=== PATIENT | female | born 1975 | race Caucasian/White ===

== ENCOUNTER → 2016-09-19 | Outpatient (REF) | payer BC | LOC: M LABDRAW1 11:34 | PROVIDERS: ATTEND Nurse Practitioner Family | DX: Z79.899 Other long term (current) drug therapy (principal) ==

== ENCOUNTER → 2018-02-15 | Outpatient (CLI) | payer BC | LOC: M SLEEP 19:39 | DX: R06.83 Snoring (principal); R40.0 Somnolence | CPT/HCPCS: 95810 ==

== ENCOUNTER → 2021-01-08 | Outpatient (REF) | payer BC | LOC: M LAB REF 16:28 | PROVIDERS: ATTEND Otolaryngology | DX: K21.9 Gastro-esophageal reflux disease without esophagitis (principal) ==

== ENCOUNTER → 2021-02-08 | Outpatient (REF) | payer BC | LOC: M LAB REF 11:29 | PROVIDERS: ATTEND Otolaryngology | DX: K14.0 Glossitis (principal) ==

== ENCOUNTER → 2021-04-18 | Outpatient (REF) | LOC: M EMP 12:15 | PROVIDERS: ATTEND Family Medicine | DX: Z20.822 Contact with and (suspected) exposure to COVID-19 (principal) ==

== ENCOUNTER → 2021-05-22 | Outpatient (CLI) | payer BC | LOC: M WUC 14:50 | PROVIDERS: ATTEND Internal Medicine | DX: R11.0 Nausea (principal) ==

== ENCOUNTER → 2021-08-14 | Outpatient (REF) | payer BC ==
[2021-08-14 16:51] LABS: APPEARANCE, URINE CLEAR (CLEAR); BACTERIA, URINE AUTO NEGATIVE (NEGATIVE); BILIRUBIN, URINE AUTO NEGATIVE (NEGATIVE); BLOOD, URINE BLOOD NEGATIVE (NEGATIVE); COLOR, URINE YELLOW (YELLOW); GLUCOSE, URINE (UA) AUTO NEGATIVE (NEGATIVE); KETONE, URINE AUTO NEGATIVE (NEGATIVE); LEUKOCYTE ESTERASE, URINE AUTO 3+ (NEGATIVE); NITRITE, URINE AUTO NEGATIVE (NEGATIVE); PROTEIN, URINE AUTO NEGATIVE (NEGATIVE); RBC, URINE AUTO 0 /HPF (0-3); SPECIFIC GRAVITY URINE AUTO 1.008 (1.002-1.035); SQUAMOUS EPITHELIAL CELL UR AU 2 /HPF (0-6); UROBILINOGEN, URINE AUTO 0.2 mg/dL (0.0-2.0); WBC, URINE AUTO 1 /HPF (0-3)
== END ==
LOC: M LAB REF 16:18
PROVIDERS: ATTEND Physician Assistant Medical
DX: R30.0 Dysuria (principal)

== ENCOUNTER → 2022-05-08 | Outpatient (REF) ==
[2022-05-08 13:38] LABS: RSV AMPLIFICATION NEGATIVE (NEGATIVE)
== END ==
LOC: M LABSMTC 10:35
PROVIDERS: ATTEND Family Medicine
DX: Z00.00 Encounter for general adult medical examination without abnormal findings (principal)

== ENCOUNTER → 2022-09-17 | Outpatient (REF) | payer BC ==
[2022-09-17 08:51] LABS: HEMATOCRIT 40.8 % (36.0-47.0); HEMOGLOBIN 13.6 g/dl (12.0-15.5); MEAN CORPUSCULAR HEMOGLOBIN 29.9 pg (27.0-33.0); MEAN CORPUSCULAR HGB CONC 33.3 g/dl (32.0-36.5); MEAN CORPUSCULAR VOLUME 89.7 fl (80.0-96.0); PLATELET COUNT, AUTOMATED 395 10^3/uL (150-450); RED BLOOD COUNT 4.55 10^6/uL (4.00-5.40); WHITE BLOOD COUNT 7.9 10^3/uL (4.0-10.0)
[2022-09-17 09:17] LABS: ALBUMIN 3.5 G/DL (3.2-5.2); ALKALINE PHOSPHATASE 51 U/L (46-116); ALT/SGPT 13 U/L (7.0-40); AST/SGOT 13 U/L (<34); BILIRUBIN,TOTAL 0.6 MG/DL (0.3-1.2); BLOOD UREA NITROGEN 11 MG/DL (9-23); CALCIUM LEVEL 8.8 MG/DL (8.5-10.1); CARBON DIOXIDE LEVEL 27 MMOL/L (20-31); CHLORIDE LEVEL 104 MMOL/L (98-107); CREATININE FOR GFR 0.74 MG/DL (0.55-1.30); GLOMERULAR FILTRATION RATE > 60.0 (>58); GLUCOSE, FASTING 94 MG/DL (60-100); POTASSIUM SERUM 4.6 MMOL/L (3.5-5.1); SODIUM LEVEL 139 MMOL/L (136-145); TOTAL PROTEIN 6.8 G/DL (5.7-8.2)
== END ==
LOC: M LAB REF 08:34
PROVIDERS: ATTEND Internal Medicine
DX: R03.0 Elevated blood-pressure reading, without diagnosis of hypertension (principal)

== ENCOUNTER → 2022-10-28 | Outpatient (REF) | payer BC ==
[2022-10-28 08:50] LABS: BLOOD UREA NITROGEN 13 MG/DL (9-23); CALCIUM LEVEL 9.7 MG/DL (8.5-10.1); CARBON DIOXIDE LEVEL 28 MMOL/L (20-31); CHLORIDE LEVEL 103 MMOL/L (98-107); CREATININE FOR GFR 0.69 MG/DL (0.55-1.30); GLOMERULAR FILTRATION RATE > 60.0 (>58); GLUCOSE, FASTING 92 MG/DL (60-100); POTASSIUM SERUM 4.1 MMOL/L (3.5-5.1); SODIUM LEVEL 137 MMOL/L (136-145)
[2022-10-28 08:55] LABS: BASO % 0.4 % (0.0-1.0); EOS % 1.9 % (0.0-3.0); HEMATOCRIT 41.3 % (36.0-47.0); HEMOGLOBIN 13.7 g/dl (12.0-15.5); LYMPH # 1.5 10^3/uL (1.5-5.0); LYMPH % 15.5 % (24.0-44.0); MEAN CORPUSCULAR HGB CONC 33.2 g/dl (32.0-36.5); MEAN CORPUSCULAR VOLUME 90.6 fl (80.0-96.0); MONO # 0.6 10^3/uL (0.0-0.8); MONO % 6.3 % (2.0-8.0); NEUTROPHILS # 7.3 10^3/uL (1.5-8.5); NEUTROPHILS % 75.6 % (36.0-66.0); PLATELET COUNT, AUTOMATED 406 10^3/uL (150-450); RED BLOOD COUNT 4.56 10^6/uL (4.00-5.40); WHITE BLOOD COUNT 9.7 10^3/uL (4.0-10.0)
[2022-10-28 08:56] LABS: EOS # 0.2 10^3/uL (0.0-0.5)
[2022-10-28 10:49] LABS: HCG, SERUM QUALITATIVE NEGATIVE (NEGATIVE)
== END ==
LOC: M LAB REF 08:04
PROVIDERS: ATTEND Orthopaedic Surgery
DX: M24.151 Other articular cartilage disorders, right hip (principal); M25.551 Pain in right hip

== ENCOUNTER → 2023-04-29 | Outpatient (REF) | payer BC | LOC: M SFHCWAGY 13:30 | PROVIDERS: ATTEND Nurse Practitioner Family | DX: Z12.4 Encounter for screening for malignant neoplasm of cervix (principal) ==

== ENCOUNTER → 2023-05-11 | Outpatient (REF) | payer BC | LOC: M SFHCWAGY 12:19 | PROVIDERS: ATTEND Nurse Practitioner Family | DX: Z12.4 Encounter for screening for malignant neoplasm of cervix (principal) ==

== ENCOUNTER → 2023-08-12 | Outpatient (REF) | payer BC ==
[2023-08-12 09:42] LABS: CORTISOL AM 11.5 UG/DL (4.3-22.4)
[2023-08-12 09:46] LABS: FOLLICLE STIMULATING HORMONE 4.1 mIU/ML; LUTEINIZING HORMONE 7.2 mIU/ML; THYROID STIMULATING HORMONE 1.801 uIU/ML (0.55-4.78)
[2023-08-12 09:47] LABS: FREE T4 1.22 NG/DL (0.89-1.76); PROGESTERONE 0.25 NG/ML
== END ==
LOC: M LAB REF 08:46
PROVIDERS: ATTEND Obstetrics & Gynecology
DX: N95.1 Menopausal and female climacteric states (principal); E34.9 Endocrine disorder, unspecified; F52.0 Hypoactive sexual desire disorder; R53.83 Other fatigue

== ENCOUNTER → 2023-08-25 | Outpatient (REF) | LOC: M EMP 08:00 | PROVIDERS: ATTEND Family Medicine | DX: Z11.52 Encounter for screening for COVID-19 (principal) ==

== ENCOUNTER → 2023-08-26 | Outpatient (CLI) | payer BC | LOC: M RAD 14:34 | PROVIDERS: ATTEND Obstetrics & Gynecology | DX: N95.1 Menopausal and female climacteric states (principal) ==

== ENCOUNTER → 2023-08-28 | Outpatient (REF) | payer BC ==
[2023-08-28 08:54] LABS: LDH LACTATE DEHYDROGENASE 162 U/L (120-246)
[2023-08-28 09:00] LABS: CARCINOEMBRYONIC ANTIGEN < 2.0 NG/ML (<2.5)
[2023-08-31 15:32] LABS: CA19-9 TUMOR MARKER,CARBOHYDRA 6.2 U/ML (<35.0)
== END ==
LOC: M LAB REF 07:58
PROVIDERS: ATTEND Obstetrics & Gynecology
DX: N83.291 Other ovarian cyst, right side (principal)

== ENCOUNTER → 2023-10-05 | Outpatient (REF) | payer BC ==
[2023-10-05 12:44] LABS: LUTEINIZING HORMONE 3.2 mIU/ML
[2023-10-05 12:45] LABS: ESTRADIOL 106.9 PG/ML; FOLLICLE STIMULATING HORMONE 5.6 mIU/ML; PROGESTERONE 7.09 NG/ML
== END ==
LOC: M LAB REF 11:23
PROVIDERS: ATTEND Obstetrics & Gynecology
DX: N95.1 Menopausal and female climacteric states (principal); R53.83 Other fatigue; E34.9 Endocrine disorder, unspecified

== ENCOUNTER → 2023-10-05 | Outpatient (CLI) | payer BC | LOC: M WHC 10:38 | PROVIDERS: ATTEND Obstetrics & Gynecology | DX: N83.291 Other ovarian cyst, right side (principal) ==

== ENCOUNTER → 2023-12-01 | Outpatient (REF) | payer BC ==
[2023-12-01 09:14] LABS: ESTRADIOL 56.6 PG/ML; LUTEINIZING HORMONE 2.6 mIU/ML
[2023-12-01 09:15] LABS: FOLLICLE STIMULATING HORMONE 7.1 mIU/ML; PROGESTERONE 6.22 NG/ML
== END ==
LOC: M LAB REF 11-30 11:03
PROVIDERS: ATTEND Obstetrics & Gynecology
DX: N95.1 Menopausal and female climacteric states (principal); E34.9 Endocrine disorder, unspecified; F52.0 Hypoactive sexual desire disorder

== ENCOUNTER → 2024-01-14 | Outpatient (REF) | payer BC ==
[2024-01-14 09:12] LABS: BASO % 0.3 % (0.0-1.0); EOS # 0.1 10^3/uL (0.0-0.5); EOS % 2.1 % (0.0-3.0); HEMATOCRIT 43.3 % (36.0-47.0); LYMPH # 1.4 10^3/uL (1.5-5.0); LYMPH % 21.4 % (24.0-44.0); MEAN CORPUSCULAR HEMOGLOBIN 29.4 pg (27.0-33.0); MEAN CORPUSCULAR HGB CONC 32.3 g/dl (32.0-36.5); MONO # 0.6 10^3/uL (0.0-0.8); MONO % 9.1 % (2.0-8.0); NEUTROPHILS # 4.5 10^3/uL (1.5-8.5); NEUTROPHILS % 66.8 % (36.0-66.0); PLATELET COUNT, AUTOMATED 373 10^3/uL (150-450); RED BLOOD COUNT 4.76 10^6/uL (4.00-5.40); WHITE BLOOD COUNT 6.7 10^3/uL (4.0-10.0)
[2024-01-14 09:41] LABS: ALBUMIN 4.3 G/DL (3.2-5.2); ALKALINE PHOSPHATASE 55 U/L (46-116); ALT/SGPT 9 U/L (7.0-40); AST/SGOT < 8 U/L (<34); BILIRUBIN,DIRECT 0.1 MG/DL (<0.4); BILIRUBIN,TOTAL 0.6 MG/DL (0.3-1.2); BLOOD UREA NITROGEN 21 MG/DL (9-23); GLOMERULAR FILTRATION RATE > 60.0 (>58); TOTAL PROTEIN 7.5 G/DL (5.7-8.2)
== END ==
LOC: M LAB REF 07:57
PROVIDERS: ATTEND Physician Assistant Surgical
DX: Z51.81 Encounter for therapeutic drug level monitoring (principal); M25.551 Pain in right hip

== ENCOUNTER → 2024-01-14 | Outpatient (REF) | payer BC ==
[2024-01-14 09:44] LABS: ESTRADIOL 66.9 PG/ML
[2024-01-14 09:45] LABS: FOLLICLE STIMULATING HORMONE 8.6 mIU/ML; LUTEINIZING HORMONE 2.4 mIU/ML
[2024-01-14 09:46] LABS: PROGESTERONE 3.01 NG/ML
== END ==
LOC: M LAB REF 07:53
PROVIDERS: ATTEND Obstetrics & Gynecology
DX: N95.1 Menopausal and female climacteric states (principal); F52.0 Hypoactive sexual desire disorder; E34.9 Endocrine disorder, unspecified

== ENCOUNTER → 2024-03-02 | Outpatient (REF) | payer BC ==
[2024-03-02 09:58] LABS: FOLLICLE STIMULATING HORMONE 6.6 mIU/ML; LUTEINIZING HORMONE 1.9 mIU/ML
[2024-03-02 09:59] LABS: PROGESTERONE 4.51 NG/ML
== END ==
LOC: M LAB REF 08:59
PROVIDERS: ATTEND Obstetrics & Gynecology
DX: N95.1 Menopausal and female climacteric states (principal); F52.0 Hypoactive sexual desire disorder; E34.9 Endocrine disorder, unspecified

== ENCOUNTER → 2024-04-05 | Outpatient (REF) | payer OTHER ==
[2024-04-05 10:28] LABS: HEMATOCRIT 40.5 % (36.0-47.0); HEMOGLOBIN 13.1 g/dl (12.0-15.5); MEAN CORPUSCULAR HEMOGLOBIN 29.3 pg (27.0-33.0); MEAN CORPUSCULAR HGB CONC 32.3 g/dl (32.0-36.5); MEAN CORPUSCULAR VOLUME 90.6 fl (80.0-96.0); PLATELET COUNT, AUTOMATED 375 10^3/uL (150-450); RED BLOOD COUNT 4.47 10^6/uL (4.00-5.40); WHITE BLOOD COUNT 7.7 10^3/uL (4.0-10.0)
[2024-04-05 10:57] LABS: ALBUMIN 3.8 G/DL (3.2-5.2); ALKALINE PHOSPHATASE 56 U/L (35-104); ALT/SGPT 10 U/L (7.0-40); AST/SGOT 11 U/L (<34); BILIRUBIN,TOTAL 0.6 MG/DL (0.3-1.2); BLOOD UREA NITROGEN 15 MG/DL (9-23); CALCIUM LEVEL 9.4 MG/DL (8.5-10.1); CARBON DIOXIDE LEVEL 29 MMOL/L (20-31); CHLORIDE LEVEL 103 MMOL/L (98-107); CHOLESTEROL LEVEL 222 MG/DL (<200); CHOLESTEROL RISK RATIO 3.82 (<5); CREATININE FOR GFR 0.72 MG/DL (0.55-1.30); GLOMERULAR FILTRATION RATE > 60.0 (>58); GLUCOSE, FASTING 91 MG/DL (60-100); HDL CHOLESTEROL 58.1 MG/DL (>40); LDL CHOLESTEROL 132.5 MG/DL (<100); NON-HDL-C 163.9 MG/DL; POTASSIUM SERUM 4.1 MMOL/L (3.5-5.1); SODIUM LEVEL 138 MMOL/L (136-145); TOTAL PROTEIN 7.2 G/DL (5.7-8.2); TRIGLYCERIDES LEVEL 157 MG/DL (<150)
[2024-04-05 10:58] LABS: FREE T4 1.19 NG/DL (0.89-1.76); THYROID STIMULATING HORMONE 2.232 uIU/ML (0.55-4.78)
[2024-04-05 10:59] LABS: TOTAL 25(OH) VITAMIN D 62.2 NG/ML (20.0-100.0)
== END ==
LOC: M LAB REF 09:24
PROVIDERS: ATTEND Registered Nurse
DX: Z00.00 Encounter for general adult medical examination without abnormal findings (principal); E78.00 Pure hypercholesterolemia, unspecified; E55.9 Vitamin D deficiency, unspecified

== ENCOUNTER → 2024-06-15 | Outpatient (REF) | payer OTHER | LOC: M SFHCWAGY 14:27 | PROVIDERS: ATTEND Nurse Practitioner Family | DX: N73.9 Female pelvic inflammatory disease, unspecified (principal) ==

== ENCOUNTER → 2024-07-07 | Outpatient (REF) | payer OTHER ==
[2024-07-07 13:06] LABS: LUTEINIZING HORMONE 0.3 mIU/ML
[2024-07-07 13:07] LABS: ESTRADIOL 147.3 PG/ML
[2024-07-07 13:09] LABS: PROGESTERONE 10.37 NG/ML
== END ==
LOC: M LAB REF 11:17
PROVIDERS: ATTEND Obstetrics & Gynecology
DX: N95.1 Menopausal and female climacteric states (principal); F52.0 Hypoactive sexual desire disorder; E34.9 Endocrine disorder, unspecified

== ENCOUNTER → 2024-07-27 | Outpatient (REF) | payer OTHER ==
[2024-07-27 13:10] LABS: ALBUMIN 4.3 G/DL (3.2-5.2); ALKALINE PHOSPHATASE 44 U/L (35-104); ALT/SGPT < 9 U/L (7.0-40); AST/SGOT 9 U/L (<34); BILIRUBIN,TOTAL 0.6 MG/DL (0.3-1.2); BLOOD UREA NITROGEN 11 MG/DL (9-23); CALCIUM LEVEL 9.9 MG/DL (8.5-10.1); CARBON DIOXIDE LEVEL 30 MMOL/L (20-31); CHLORIDE LEVEL 104 MMOL/L (98-107); GLOMERULAR FILTRATION RATE > 60.0 (>58); GLUCOSE, FASTING 86 MG/DL (60-100); POTASSIUM SERUM 4.5 MMOL/L (3.5-5.1); SODIUM LEVEL 140 MMOL/L (136-145); TOTAL PROTEIN 7.4 G/DL (5.7-8.2)
[2024-07-27 13:12] LABS: FREE T4 1.18 NG/DL (0.89-1.76); THYROID STIMULATING HORMONE 0.886 uIU/ML (0.55-4.78)
== END ==
LOC: M LAB REF 12:31
PROVIDERS: ATTEND Registered Nurse
DX: Z79.899 Other long term (current) drug therapy (principal); E66.09 Other obesity due to excess calories

== ENCOUNTER → 2024-10-27 | Outpatient (REF) | payer OTHER ==
[2024-10-27 11:30] LABS: PLATELET COUNT, AUTOMATED 390 10^3/uL (150-450)
[2024-10-27 12:00] LABS: CALCIUM LEVEL 9.3 MG/DL (8.5-10.1); CARBON DIOXIDE LEVEL 29 MMOL/L (20-31); CHLORIDE LEVEL 102 MMOL/L (98-107); CREATININE FOR GFR 0.65 MG/DL (0.55-1.30); GLOMERULAR FILTRATION RATE > 90.0 (>58); IRON (FE) 75 UG/DL (50-170); PERCENT SATURATION 22.9 % (13.2-45.0); POTASSIUM SERUM 4.3 MMOL/L (3.5-5.1); SODIUM LEVEL 143 MMOL/L (136-145)
[2024-10-27 12:01] LABS: VITAMIN B12 LEVEL 731 PG/ML (211-911)
[2024-10-27 12:02] LABS: FREE T4 1.05 NG/DL (0.89-1.76)
[2024-11-02 19:45] LABS: LYME TOTAL ANTIBODY CIA <= 0.90 Index (<=0.90)
== END ==
LOC: M LAB REF 11:08
PROVIDERS: ATTEND Registered Nurse
DX: D50.9 Iron deficiency anemia, unspecified (principal); R53.83 Other fatigue

== ENCOUNTER → 2024-11-18 | Outpatient (CLI) | payer OTHER ==
[~2024-11-18] MED LIST: PROHANCE 279.3MG/ML 15ML VIAL ONE
== END ==
LOC: M PLAIMG 09:07
PROVIDERS: ATTEND Nurse Practitioner Family
DX: R92.30 Dense breasts, unspecified (principal); Z91.89 Other specified personal risk factors, not elsewhere classified
CPT/HCPCS: A9576; C8908

== ENCOUNTER → 2025-04-11 | Outpatient (REF) | payer OTHER ==
[2025-04-11 08:37] LABS: ALT/SGPT 11 U/L (7.0-40); AST/SGOT 18 U/L (<34); CALCIUM LEVEL 9.8 MG/DL (8.5-10.1); CARBON DIOXIDE LEVEL 32 MMOL/L (20-31); CHLORIDE LEVEL 100 MMOL/L (98-107); CHOLESTEROL LEVEL 185 MG/DL (<200); CHOLESTEROL RISK RATIO 3.06 (<5); CREATININE FOR GFR 0.78 MG/DL (0.55-1.30); GLOMERULAR FILTRATION RATE > 90.0 (>58); LDL CHOLESTEROL 95.9 MG/DL (<100); NON-HDL-C 124.7 MG/DL; POTASSIUM SERUM 4.1 MMOL/L (3.5-5.1); SODIUM LEVEL 139 MMOL/L (136-145); TRIGLYCERIDES LEVEL 144 MG/DL (<150)
[2025-04-11 08:40] LABS: FREE T4 1.36 NG/DL (0.89-1.76); TOTAL 25(OH) VITAMIN D 67.9 NG/ML (20.0-100.0)
== END ==
LOC: M LAB REF 07:46
PROVIDERS: ATTEND Registered Nurse
DX: E78.00 Pure hypercholesterolemia, unspecified (principal); E55.9 Vitamin D deficiency, unspecified; Z79.899 Other long term (current) drug therapy